=== PATIENT | male | born 1975 | race African-American/Black ===

== ENCOUNTER 2022-09-15 16:17 | Emergency (ER) | payer BC ==
[~2022-09-15] VITALS: Ht 182.9 cm; Wt 136.1 kg
== END 2022-09-15 17:46 | disposition home or self-care (01) ==
LOC: ER 16:17
DX: S01.01XA Laceration without foreign body of scalp, initial encounter (principal); X58.XXXA Exposure to other specified factors, initial encounter; Y93.9 Activity, unspecified; Y92.9 Unspecified place or not applicable; Y99.9 Unspecified external cause status